=== PATIENT | male | born 1980 | race Caucasian/White ===

== ENCOUNTER 2023-05-21 15:00 | Outpatient (RCR) | payer OTHER | END 2023-05-26 | disposition home or self-care (01) | LOC: WSOT | DX: S56.11 Strain of flexor muscle, fascia and tendon of other and unspecified finger at forearm level (principal); X58.XXXD Exposure to other specified factors, subsequent encounter ==

== ENCOUNTER 2023-07-07 15:00 | Outpatient (RCR) | payer OTHER | END 2023-07-25 | disposition home or self-care (01) | LOC: WSOT | DX: S56.11 Strain of flexor muscle, fascia and tendon of other and unspecified finger at forearm level (principal) ==

== ENCOUNTER 2023-09-16 15:00 | Outpatient (RCR) | payer OTHER | END 2023-09-24 14:40 | disposition home or self-care (01) | LOC: WSOT 15:00 | DX: S56.11 Strain of flexor muscle, fascia and tendon of other and unspecified finger at forearm level (principal); X58.XXXD Exposure to other specified factors, subsequent encounter ==